=== PATIENT | female | born 1995 | race African-American/Black ===

== ENCOUNTER → 2016-07-20 | Outpatient (CLI) | payer OTHER ==
[2015-03-27 05:16] VITALS: BP 126/91
--- NOTE | 2016-07-20 15:29 | KCIC ---
PROCEDURE Obstetrical ultrasound HISTORY Uterine size and date discrepancy. FINDINGS Single intrauterine fetus is identified. The placenta is located fundal and right lateral. Amniotic fluid volume appears within normal limits. movement is documented. Cardiac activity is documented with a heart rate of 143 beats per minute. Four-chamber heart, three-vessel cord, kidneys, stomach, urinary bladder, brain and spine are documented. presentation is variable. Cervical length measures 5.0 centimeters. Biparietal diameter, head circumference, abdominal circumference, femur length are measured and ratios determined. Estimated sonographic age based on ultrasound is 22 weeks 1 day with an estimated due date of 11/22/2016. Estimated weight is 482 grams +/-71 grams. IMPRESSION Single viable intrauterine . Estimated sonographic age is 22 weeks 1 day. Electronically signed by: Cm Diaz MD (Jul 20, 2016 15:27:49)
== END | disposition home or self-care (01) ==
LOC: KCIC US 08:03
PROVIDERS: ATTEND Obstetrics & Gynecology
DX: O09.01 Supervision of pregnancy with history of infertility, first trimester (principal); O31.20X3 Continuing pregnancy after intrauterine death of one fetus or more, unspecified trimester, fetus 3; Z3A.22 22 weeks gestation of pregnancy
CPT/HCPCS: 76805

== ENCOUNTER 2016-11-14 21:51 | Inpatient (IN) | payer OTHER ==
[~2016-11-14] VITALS: Ht 160 cm; Wt 73.0 kg
[2016-11-14 22:21] LABS: BILIRUBIN,URINE NEGATIVE (NEG); GLUCOSE,URINE NEGATIVE (NEG); NITRITE,URINE NEGATIVE (NEG); PROTEIN,URINE NEGATIVE (NEG-TRACE)
[2016-11-14 22:29] LABS: BACTERIA,URINE FEW /HPF (0-FEW); RBC,URINE 0 /HPF (0-2); SQUAMOUS EPITHELIAL CELL,UR MANY /LPF
[2016-11-14] MEDS: IV RINGERS,LACTATED 1000ML 1,000 ML IV SCH (22:50)
[2016-11-15] MEDS: IV RINGERS,LACTATED 1000ML 1,000 ML IV SCH ×3 (00:18→10:23)
[2016-11-15 00:41] VITALS: BP 128/77
--- NOTE | 2016-11-15 00:45 | RAD ---
PROCEDURE Limited obstetric ultrasound. HISTORY Spontaneous decelerations. TECHNIQUE Real-time ultrasound imaging of the gravid uterus using transabdominal window is performed. COMPARISON None. FINDINGS A single intrauterine fetus is seen in breech position. heart rate is 143 beats per minute. BPD is 8.7 cm which equals 35 weeks 0 days. HC is 31.9 cm which equals 36 weeks 0 days. AC is 28.8 cm which equals 32 weeks 6 days. FL is 6.8 cm which equals 35 weeks 1 days. Average gestational age by ultrasound is 34 weeks 5 days with an EDC of December 21, 2016. There is some discrepancy in comparison to the clinical age of 38 weeks and 1 day. Estimated weight is 2334 +/- 345 grams. Estimated weight percentage is not listed. [A anatomic survey is not performed due to advanced gestational age. ] NANCY using the four quadrant method is 3.9 cm. Cervix is not seen. A fundal placenta is seen. No placenta previa and no placenta abruptio is identified. The maternal ovaries are not visualized. IMPRESSION 1. Single live intrauterine , estimated sonographic gestational age 34 weeks and 5 days. 2. Oligohydramnios. Electronically signed by: Blake Negron MD (November 15, 2016 00:43:47)
[2016-11-15 01:05] LABS: BASO # 0.1 x10^3/uL (0.0-0.2); BASO % 1 % (0-3); EOS % 1 % (0-3); HEMATOCRIT 27.1 % (36.0-47.0); HEMOGLOBIN 8.5 g/dL (12.0-15.5); LYMPH # 1.7 x10^3/uL (1.0-4.8); LYMPH % 15 % (24-48); MEAN CORPUSCULAR HEMOGLOBIN 23 pg (25-35); MEAN CORPUSCULAR HGB CONC 31 g/dL (31-37); MEAN CORPUSCULAR VOLUME 72 fL (79-100); MONO % 9 % (0-9); NEUT % 74 % (31-73); PLATELET COUNT 265 x10^3/uL (140-400); RED BLOOD COUNT 3.78 x10^6/uL (3.50-5.40); RED CELL DISTRIBUTION WIDTH 17.8 % (11.5-14.5); WHITE BLOOD COUNT 11.6 x10^3/uL (4.0-11.0)
[2016-11-15 04:58] LABS: ANISOCYTOSIS SLIGHT; HYPOCHROMIA MOD; MICROCYTOSIS SLIGHT; PLT ESTIMATE ADEQUATE (ADEQUATE); POLYCHROMASIA SLIGHT; TEAR DROP CELLS FEW
[2016-11-15 04:59] LABS: HELMET CELLS OCC
--- NOTE | 2016-11-15 09:52 | PDOC1 ---
OB - History Hx of Present Care: Good Care Ultrasounds: Normal mid trimester US Obstetrical Complications: None, Other (oligohyramnios) Medical Complications: None Past Family/Social History * Past Medical, Surgical, Family and Obstetric Histories reviewed from chart. Rubella: Immune RPR/VDRL: Negative GBS Status: Negative HBsAG: Negative OB - Chief Complaint & HPI Date of Admission: Date of Admission: November 14, 2016 at 21:51 Chief Complaint/History : 3 Para: 1 EGA: 38 Reason for admission: other (Breech and Oligohydramnios) Indication for : other (Breech and Oligohydramnios) Admission Nurse Assessment Rev: Yes Problems: OB - Admission Exam Physical Exam Vitals: VS - Last 72 Hours, by Label Date Time Temp Pulse Resp B/P (MAP) Pulse Ox O2 Delivery O2 Flow Rate FiO2 11/15/16 00:41 97.0 98 18 128/77 (94) Room Air 97.0 HEENT: Normal Heart: Regular Rate Lungs: Clear Abdomen: Gravid, Non tender, Soft Extremities: Edema Reflexes: Normal Cervical Dilatation: 1cm Effacement: 25% Station: Ballotable Membranes: Intact Heart Rate: Bradycardia Accelerations: Accelerations Present Decelerations: Variable decelerations Contractions on Admission: >10 Minutes Apart Intensity: Mild Text A: 38 wks IUP Breech Oligohydramnios P: Admit for c/s. AURA MARTINEZ Jr, MD November 15, 2016 09:52
[2016-11-15] MEDS ORDERED: ATROPINE 0.5 MG/5 ML DISP.SYRIN. IV PRN (10:30)
[2016-11-15] MEDS ORDERED: ONDANSETRON PF 4 MG/2 ML VIAL. IV PRN ×2 (10:30→13:45)
[2016-11-15] MEDS ORDERED: MORPHINE SULFATE 2 MG/ML DISP.SYRIN. IV PRN (10:30)
[2016-11-15] MEDS ORDERED: NALOXONE 0.4 MG/ML VIAL. IV PRN (10:30)
[2016-11-15] MEDS ORDERED: diphenhydrAMINE 50 MG/ML VIAL IV PRN (10:30)
[2016-11-15] MEDS ORDERED: PROCHLORPERAZINE 10 MG/2 ML VIAL. IV PRN (10:30)
[2016-11-15] MEDS ORDERED: NALBUPHINE 10 MG/ML AMPUL. IV PRN (10:30)
[2016-11-15] MEDS ORDERED: CITRIC ACID/SODIUM CITRATE 30 ML SOLUTION. PO ONE (10:45)
[2016-11-15] MEDS ORDERED: PHENYLEPHRINE in 0.9% NACL PF 1 MG/10 ML DISP.SYRIN. IV ONE (11:50)
[2016-11-15] MEDS ORDERED: FAMOTIDINE 20 MG/2 ML VIAL ONE (11:50)
[2016-11-15] MEDS ORDERED: fentaNYL PF VIAL 100 MCG/2 ML VIAL ONE (11:50)
[2016-11-15] MEDS ORDERED: DEXAMETHASONE SOD PHOS 20 MG/5 ML VIAL. ONE (11:50)
[2016-11-15] MEDS ORDERED: OXYTOCIN 10 UNIT/ML VIAL. ONE (11:50)
[2016-11-15] MEDS ORDERED: ONDANSETRON PF 4 MG/2 ML VIAL. ONE (11:50)
[2016-11-15] MEDS ORDERED: METOCLOPRAMIDE HCL 10 MG/2 ML VIAL. ONE (11:50)
[2016-11-15] MEDS ORDERED: MORPHINE PF 5 MG/10 ML VIAL. ONE (11:50)
[2016-11-15] MEDS ORDERED: ePHEDrine PF IN SALINE 50 MG/5 ML DISP.SYRIN IV ONE (11:51)
--- NOTE | 2016-11-15 13:33 | PDOC4 ---
OB Operative Note PRE OP DIAGNOSIS: Breech (Oligohyramnios) POST OP DIAGNOSIS: Other (Same) OPERATION PERFORMED: [address] Saurabh Benítez Anesthesia: Regional (Spinal) Blood Loss 500 ml Specimen placenta and infant OB Findings: Position (Breech), Sex (Female), (6/9), Weight (4 Lb 11 oz) Complications none Additional Remarks pt. AURA Del Cid Jr, MD November 15, 2016 13:33
[2016-11-15] MEDS ORDERED: SIMETHICONE 80 MG TAB.CHEW PO PRN (13:45)
[2016-11-15] MEDS ORDERED: IBUPROFEN 800 MG TABLET. PO PRN (13:45)
[2016-11-15] MEDS ORDERED: MAG HYDROX/ALUMINUM HYD/SIMETH 30 ML ORAL.SUSP PO PRN (13:45)
[2016-11-15] MEDS ORDERED: ZOLPIDEM 5 MG TABLET. PO PRN (13:45)
[2016-11-15] MEDS ORDERED: diphenhydrAMINE ORAL ELIXIR 12.5 MG/5 ML ML PO PRN (13:45)
[2016-11-15] MEDS ORDERED: 0.9 % SODIUM CHLORIDE 10 ML DISP.SYRIN. IV PRN (13:45)
[2016-11-15] MEDS ORDERED: OXYTOCIN 30 UNIT/500 ML PREMIX 500 ML IV PRN (13:45)
[2016-11-15 16:47] VITALS: BP 121/72
--- NOTE | 2016-11-15 18:16 | OP ---
DATE OF SURGERY: PREOPERATIVE DIAGNOSES: 1. A 38 weeks intrauterine . 2. Breech. 3. Bilateral hydramnios. POSTOPERATIVE DIAGNOSES: 1. A 38 weeks intrauterine . 2. Breech. 3. Bilateral hydramnios. PROCEDURE: Primary low transverse section. SURGEON: Aura Wiley MD DEFECT CUTTER: Jackelin. ANESTHESIA: Spinal. ESTIMATED BLOOD LOSS: 500 mL. COMPLICATIONS: None. FINDINGS: Viable female infant, Apgars 6 and 9, weight 4 pounds 11 ounces, 3-vessel cord placenta delivered manually intact. SUMMARY: A 21-year-old 2, para 1 who presented for her irregular contractions. The patient was observed and found to have recurrent variable deceleration. Sonogram confirmed hydramnios as well as breech presentation. The patient was counseled on need for section. She was counseled on risks, benefits and expectations and voiced a clear understanding to proceed. DESCRIPTION OF PROCEDURE: The patient was taken to surgery suite and placed in dorsal supine position. She was prepped with ChloraPrep and draped in sterile fashion. After adequate anesthesia, a Pfannenstiel skin incision was made with scalpel down to and through the fascia. Fascia was extended laterally using curved Mederos scissors. The superior edge of the fascia was grasped with two Christina clamps and dissected free of the abdominal rectus muscle superiorly using blunt dissection along with Bovie cautery. The same process took place inferiorly. The abdominal rectus muscles were then dissected using curved Mederos scissors in the midline. The peritoneum was grasped with 2 hemostats and entered sharply with Metzenbaum scissors. This incision was extended superiorly as well as inferiorly. The Charlie ring retractor was placed. Low transverse hysterotomy incision made with scalpel down to the amniotic sac. Hysterotomy incision was taken down to the amniotic sac. Hysterotomy incision was extended laterally and superiorly digitally. Amniotomy was performed with Allis clamp, which elicited a small amount of clear fluid. With the aid of fundal pressure, the 's hips were delivered. Both legs were flexed and delivered along with fundal pressure. The infant was ____ down to the subscapular region. The left arm was flexed and delivered. The was rotated 180 degrees. The right arm was flexed and delivered. With the aid of fundal pressure, ____ maneuver, the infant's head was delivered atraumatically. The was suctioned with bulb syringe orally and nasally. The umbilical cord was clamped twice and cut. A viable female infant was handed to awaiting nursing staff. Umbilical cord blood was obtained with arterial venous pH. Three vessel cord placenta was delivered manually intact. The uterus was then exteriorized, cleared of clot and debris with moist laps. The hysterotomy incision was reapproximated using 1-0 Vicryl suture in a running locked fashion and imbricated layer was performed using 1-0 Vicryl suture in running fashion. Uterus palpated firm. Fallopian tubes and ovaries appeared normal bilaterally. Posterior cul-de-sac was cleared of clot and debris with moist lap. The uterus then returned to abdomen. The pericolic gutters were cleared of clot and debris with moist lap. Interceed was placed over the hysterotomy incision in an inverted T fashion. The Charlie ring retractor was removed. The peritoneum was reapproximated using 1-0 Vicryl suture in running fashion. Fascia was reapproximated using 0 Vicryl suture in a running fashion. Skin was reapproximated using 4-0 Vicryl suture in subcuticular manner. The patient tolerated the procedure well and was taken to recovery room in stable condition. Sponge and needle counts correct x 3. AURA WILEY MD DR: ROSALIA/frank JOB#: [id number] / [id number]
[2016-11-15] MEDS: KETOROLAC TROMETHAMINE 30 MG/ML INJ. IV PRN (18:53)
[2016-11-15 21:40] VITALS: BP 121/80
[2016-11-16 00:15] VITALS: BP 123/81
[2016-11-16] MEDS: IV RINGERS,LACTATED 1000ML 1,000 ML IV SCH (01:12)
[2016-11-16] MEDS: KETOROLAC TROMETHAMINE 30 MG/ML INJ. IV PRN (01:12)
[2016-11-16 04:33] LABS: BASO % 0 % (0-3); EOS % 0 % (0-3); HEMATOCRIT 22.1 % (36.0-47.0); HEMOGLOBIN 7.2 g/dL (12.0-15.5); LYMPH # 1.2 x10^3/uL (1.0-4.8); LYMPH % 7 % (24-48); MEAN CORPUSCULAR HEMOGLOBIN 23 pg (25-35); MEAN CORPUSCULAR HGB CONC 33 g/dL (31-37); MEAN CORPUSCULAR VOLUME 71 fL (79-100); MONO % 10 % (0-9); NEUT % 83 % (31-73); PLATELET COUNT 237 x10^3/uL (140-400); RED BLOOD COUNT 3.12 x10^6/uL (3.50-5.40); RED CELL DISTRIBUTION WIDTH 17.6 % (11.5-14.5); WHITE BLOOD COUNT 16.5 x10^3/uL (4.0-11.0)
[2016-11-16 06:22] LABS: RPR REFLEX Non Reactive (Non Reactive)
[2016-11-16 07:03] VITALS: BP 114/77
[2016-11-16] MEDS: FERROUS SULFATE 325 MG TABLET. PO SCH ×2 (07:33→18:35)
[2016-11-16] MEDS: DOCUSATE SODIUM 100 MG CAPSULE. PO PRN (07:33)
--- NOTE | 2016-11-16 09:00 | PDOC ---
OB Progress Note Date of Service 11/16/16 Time of Evaluation 0855 Notes Pt. feeling well. Pain controlled. Breast and bottle feeding. Lochia minimal. Lab Laboratory Tests Test 11/14/16 22:10 11/15/16 00:50 11/16/16 03:40 Urine Collection Type Unknown Urine Color Yellow Urine Clarity Clear Urine pH 6.0 Urine Specific [place] >=1.030 Urine Protein Negative mg/dL (NEG-TRACE) Urine Glucose (UA) Negative mg/dL (NEG) Urine Ketones (Stick) Negative mg/dL (NEG) Urine Blood Negative (NEG) Urine Nitrite Negative (NEG) Urine Bilirubin Negative (NEG) Urine Urobilinogen Dipstick 1.0 mg/dL (0.2 mg/dL) Urine Leukocyte Esterase Trace (NEG) Urine RBC 0 /HPF (0-2) Urine WBC 1-4 /HPF (0-4) Urine Squamous Epithelial Cells Many /LPF Urine Bacteria Few /HPF (0-FEW) Urine Mucus Marked /LPF White Blood Count 11.6 x10^3/uL (4.0-11.0) 16.5 x10^3/uL (4.0-11.0) Red Blood Count 3.78 x10^6/uL (3.50-5.40) 3.12 x10^6/uL (3.50-5.40) Hemoglobin 8.5 g/dL (12.0-15.5) 7.2 g/dL (12.0-15.5) Hematocrit 27.1 % (36.0-47.0) 22.1 % (36.0-47.0) Mean Corpuscular Volume 72 fL (79-100) 71 fL (79-100) Mean Corpuscular Hemoglobin 23 pg (25-35) 23 pg (25-35) Mean Corpuscular Hemoglobin Concent 31 g/dL (31-37) 33 g/dL (31-37) Red Cell Distribution Width 17.8 % (11.5-14.5) 17.6 % (11.5-14.5) Platelet Count 265 x10^3/uL (140-400) 237 x10^3/uL (140-400) Neutrophils (%) (Auto) 74 % (31-73) 83 % (31-73) Lymphocytes (%) (Auto) 15 % (24-48) 7 % (24-48) Monocytes (%) (Auto) 9 % (0-9) 10 % (0-9) Eosinophils (%) (Auto) 1 % (0-3) 0 % (0-3) Basophils (%) (Auto) 1 % (0-3) 0 % (0-3) Neutrophils # (Auto) 8.5 x10^3uL (1.8-7.7) 13.6 x10^3uL (1.8-7.7) Lymphocytes # (Auto) 1.7 x10^3/uL (1.0-4.8) 1.2 x10^3/uL (1.0-4.8) Monocytes # (Auto) 1.0 x10^3/uL (0.0-1.1) 1.7 x10^3/uL (0.0-1.1) Eosinophils # (Auto) 0.2 x10^3/uL (0.0-0.7) 0.0 x10^3/uL (0.0-0.7) Basophils # (Auto) 0.1 x10^3/uL (0.0-0.2) 0.0 x10^3/uL (0.0-0.2) Platelet Estimate Adequate (ADEQUATE) Giant Platelets Occ Polychromasia Slight Hypochromasia Mod Anisocytosis Slight Microcytosis Slight Tear Drop Cells Few Helmet Cells Occ RPR Titer Additional Testing Non reactive (Non Reactive) Laboratory Tests Test 11/16/16 03:40 White Blood Count 16.5 x10^3/uL (4.0-11.0) Red Blood Count 3.12 x10^6/uL (3.50-5.40) Hemoglobin 7.2 g/dL (12.0-15.5) Hematocrit 22.1 % (36.0-47.0) Mean Corpuscular Volume 71 fL (79-100) Mean Corpuscular Hemoglobin 23 pg (25-35) Mean Corpuscular Hemoglobin Concent 33 g/dL (31-37) Red Cell Distribution Width 17.6 % (11.5-14.5) Platelet Count 237 x10^3/uL (140-400) Neutrophils (%) (Auto) 83 % (31-73) Lymphocytes (%) (Auto) 7 % (24-48) Monocytes (%) (Auto) 10 % (0-9) Eosinophils (%) (Auto) 0 % (0-3) Basophils (%) (Auto) 0 % (0-3) Neutrophils # (Auto) 13.6 x10^3uL (1.8-7.7) Lymphocytes # (Auto) 1.2 x10^3/uL (1.0-4.8) Monocytes # (Auto) 1.7 x10^3/uL (0.0-1.1) Eosinophils # (Auto) 0.0 x10^3/uL (0.0-0.7) Basophils # (Auto) 0.0 x10^3/uL (0.0-0.2) Medications Current Medications Ringer's Solution 1,000 ml @ 125 mls/hr Q8H IV Last administered on 11/16/16t 01:12; Start 11/14/16 at 22:00 Morphine Sulfate 2 mg PRN Q10MIN PRN IV PAIN; Start 11/15/16 at 10:30; Stop 11/16 at 10:29 Ondansetron HCl (Zofran) 4 mg PRN Q6HRS PRN IV NAUSEA/VOMITING; Start 11/15/16 at 10:30; Stop 11/16/16 at 10:29 Prochlorperazine Edisylate (Compazine) 5 mg PRN Q6HRS PRN IV NAUSEA/VOMITING; Start 11/15/16 at 10:30; Stop 11/16/16 at 10:29 Diphenhydramine HCl (Benadryl) 12.5 mg PRN Q2HR PRN IV ITCHING; Start 11/15/16 at 10:30; Stop 11/16/16 at 10:29 Nalbuphine HCl (Nubain) 2.5 mg PRN Q2HR PRN IV PAIN; Start 11/15/16 at 10:30; Stop 11/16/16 at 10:29 Atropine Sulfate 0.5 mg PRN 1X PRN IV SEE COMMENTS; Start 11/15/16 at 10:30; Stop 11/16/16 at 10:29 Naloxone HCl (Narcan) 0.04 mg PRN Q2MIN PRN IV SEE COMMENTS; Start 11/15/16 at 10:30; Stop 11/16/16 at 10:29 Cefazolin Sodium 1 gm/Sodium Chloride 50 ml @ 100 mls/hr 1X ONCE IV ; Start at 06:00; Stop 11/16/16 at 06:29; Status UNV Citric Acid/ Sodium Citrate (Bicitra) 30 ml 1X ONCE PO Last administered on t 12:07; Start 11/15/16 at 10:45; Stop 11/15/16 at 10:46; Status DC Cefazolin Sodium 50 ml @ 100 mls/hr 1X ONCE IV ; Start 11/15/16 at 10:45; Stop 11/15/16 at 11:14; Status DC Dexamethasone Sodium Phosphate (Decadron) 20 mg STK-MED ONCE .ROUTE ; Start 11/15 at 11:50; Stop 11/15/16 at 11:51; Status DC Famotidine (Pepcid) 20 mg STK-MED ONCE .ROUTE ; Start 11/15/16 at 11:50; Stop 11/15/16 at 11:51; Status DC Metoclopramide HCl (Reglan) 10 mg STK-MED ONCE .ROUTE ; Start 11/15/16 at 11:50; Stop 11/15/16 at 11:51; Status DC Ondansetron HCl (Zofran) 4 mg STK-MED ONCE .ROUTE ; Start 11/15/16 at 11:50; Stop 11/15/16 at 11:51; Status DC Phenylephrine HCl 1 mg STK-MED ONCE IV ; Start 11/15/16 at 11:50; Stop 11/15/16 at 11:51; Status DC Fentanyl Citrate (Fentanyl 2ml Vial) 100 mcg STK-MED ONCE .ROUTE ; Start at 11:50; Stop 11/15/16 at 11:51; Status DC Oxytocin (Pitocin) 10 unit STK-MED ONCE .ROUTE ; Start 11/15/16 at 11:50; Stop at 11:51; Status DC Morphine Sulfate (Morphine Preservative Free) 5 mg STK-MED ONCE .ROUTE ; Start 11/15/16 at 11:50; Stop 11/15/16 at 11:51; Status DC Ephedrine Sulfate 50 mg STK-MED ONCE IV ; Start 11/15/16 at 11:51; Stop 11/15/16 at 11:52; Status DC Cefazolin Sodium/ Dextrose 50 ml @ 100 mls/hr 1X ONCE IV ; Start 11/15/16 at 12 :15; Stop 11/15/16 at 12:44; Status DC Sodium Chloride (Normal Saline Flush) 3 ml QSHIFT PRN IV AFTER MEDS AND BLOOD DRAWS; Start 11/15/16 at 13:45 Oxytocin/Sodium Chloride 500 ml @ 125 mls/hr CONT PRN IV EXCESSIVE POST- BLEEDING; Start 11/15/16 at 13:45; Stop 11/15/16 at 21:44; Status DC Ibuprofen (Motrin) 800 mg PRN Q8HRS PRN PO INFLAMMATION; Start 11/15/16 at 13:45 Ondansetron HCl (Zofran) 4 mg PRN Q6HRS PRN IV NAUSEA/VOMITING; Start 11/15/16 at 13:45 Docusate Sodium (Colace) 100 mg PRN BID PRN PO CONSTIPATION Last administered on 11/16/16 07:33; Start 11/15/16 at 13:45 Al Hydroxide/Mg Hydroxide (Mylanta Plus Xs) 30 ml PRN Q4HRS PRN PO HEARTBURN / GAS; Start 11/15/16 at 13:45 Simethicone (Gas-X) 80 mg PRN AFTMEALHC PRN PO GAS / BLOATING; Start 11/15/16 at 13:45 Diphenhydramine HCl (Benadryl Oral Elixir) 12.5 mg PRN Q6HRS PRN PO ITCHING; Start 11/15/16 at 13:45 Ferrous Sulfate (Feosol) 325 mg BIDWMEALS PO Last administered on 11/16/16 07: 33; Start 11/15/16 at 17:00 Zolpidem Tartrate (Ambien) 5 mg PRN QHS PRN PO INSOMNIA, MAY REPEAT X1; Start 11/15/16 at 13:45 Oxycodone/ Acetaminophen (Percocet 5/325) 2 tab PRN Q4HRS PRN PO MODERATE PAIN , SEVERE PAIN; Start 11/15/16 at 13:45 Ketorolac Tromethamine (Toradol) 30 mg PRN Q6HRS PRN IV PAIN Last administered on 11/16/16 01:12; Start 11/15/16 at 13:45; Stop 11/20/16 at 13:44 Exam Abd: soft, mild tenderness, fundus firm Bandage removed. INcision site: clean, dry and intact Assessment POD#1 s/p c/s Plan of Care: Continue current Tx, Mgmt AURA MARTINEZ Jr, MD November 16, 2016 09:00
[2016-11-16] MEDS: oxyCODONE/APAP 5/325 1 TAB TABLET PO PRN ×3 (09:20→22:18)
[2016-11-16 09:55] VITALS: BP 119/75
[2016-11-16 18:25] VITALS: BP 116/88
[2016-11-16 22:00] VITALS: BP 124/81
[2016-11-16] MEDS: IBUPROFEN 100 MG/5 ML ORAL.SUSP. PO PRN (23:34)
[2016-11-17 06:11] VITALS: BP 133/91
[2016-11-17] MEDS: oxyCODONE/APAP 5/325 1 TAB TABLET PO PRN ×3 (08:32→21:35)
[2016-11-17] MEDS: DOCUSATE SODIUM 100 MG CAPSULE. PO PRN (08:32)
[2016-11-17] MEDS: FERROUS SULFATE 325 MG TABLET. PO SCH ×2 (08:32→18:12)
[2016-11-17 12:19] VITALS: BP 129/94
[2016-11-17] MEDS: IBUPROFEN 100 MG/5 ML ORAL.SUSP. PO PRN (14:20)
[2016-11-17 15:05] VITALS: BP 115/81
[2016-11-17] MEDS ORDERED: DIPHTH,PERTUSS(ACELL),TET TOX 0.5 ML DISP.SYRIN. VAX IM ONE (16:00)
[2016-11-17 19:50] VITALS: BP 114/76
[2016-11-18] MEDS: oxyCODONE/APAP 5/325 1 TAB TABLET PO PRN (05:55)
[2016-11-18 05:56] VITALS: BP 131/90
--- NOTE | 2016-11-18 10:57 | PATHOLOGY ---
PATHOLOGY REPORT * * * * * * * * FINAL DIAGNOSIS: Placenta, section: - Third trimester placenta, 257 grams (small for gestational age). - Attached trivascular umbilical cord without significant inflammation. - Acute deciduitis. - Placental parenchyma with no significant histopathologic diagnosis. (KEVINM:adama; d/t: 11/18/2016) REPORT ELECTRONICALLY SIGNED BY: Cassandra Ruvalcaba M.D. DATE/TIME: 11/18/2016 10:56 * * * * * * * * GROSS PATHOLOGY: The specimen is received in formalin labeled "Brownplacenta" is a 12.5 x 10.2 by up to 3.4 cm dunn placenta with a 19 cm long umbilical cord. The 3 vessel umbilical cord inserts paracentrally with 3 twists per 5-6 cm. The membranes are bluish gaviria with marginal insertion. The point of rupture cannot be determined. The surface is intact. The maternal surface is also intact. After removal of the membranes and umbilical cord, the placenta weighs 257 g. Sectioning reveals a red beefy unremarkable cut surface. Section code: A1-membranes and umbilical cord, [id number] section adjacent to umbilical cord insertion site, A3 through [id number] advertising account representative sections of placenta full thickness. (AKA; 11/17/2016) INITIAL CPT CODE(S): A; 95846 Professional services performed by [employer] [place] [address] Technical services performed by [email or web address] at [address] [place] [address] [address] [address]. SPECIMEN(S) RECEIVED: A.Placenta CLINICAL HISTORY: for breech presentation, 38.2 weeks gestation, oligohydramnios, IUGR, , EDC 11/22, 4lb 12oz female @ 1238 on 11/15/16, apgars 7-9 PATIENT: IRVING FELDER /AGE: 701/24/1995 (Age: 21) PATIENT #: [id number] ALT CASE #: SPECIMEN COLLECTION DATE: 11/15/2016 SPECIMEN RECEIVED DATE: 11/16/2016 [facility] - [address] [place] [address] - PHONE: [phone] * * * END OF REPORT * * *
[2016-11-18 11:00] VITALS: BP 124/89
[2016-11-18] MEDS: FERROUS SULFATE 325 MG TABLET. PO SCH (13:33)
[2016-11-18] MEDS: IBUPROFEN 100 MG/5 ML ORAL.SUSP. PO PRN (13:33)
--- NOTE | 2016-11-18 16:36 | PDOC ---
OB Progress Note Date of Service 11/18/16 Time of Evaluation 1630 Notes Pt. feeling well. No complaints. Medications Current Medications Ringer's Solution 1,000 ml @ 125 mls/hr Q8H IV Last administered on 11/16/16t 01:12; Start 11/14/16 at 22:00; Stop 11/16/16 at 21:08; Status DC Morphine Sulfate 2 mg PRN Q10MIN PRN IV PAIN; Start 11/15/16 at 10:30; Stop 11/16 at 10:29; Status DC Ondansetron HCl (Zofran) 4 mg PRN Q6HRS PRN IV NAUSEA/VOMITING; Start 11/15/16 at 10:30; Stop 11/16/16 at 10:29; Status DC Prochlorperazine Edisylate (Compazine) 5 mg PRN Q6HRS PRN IV NAUSEA/VOMITING; Start 11/15/16 at 10:30; Stop 11/16/16 at 10:29; Status DC Diphenhydramine HCl (Benadryl) 12.5 mg PRN Q2HR PRN IV ITCHING; Start 11/15/16 at 10:30; Stop 11/16/16 at 10:29; Status DC Nalbuphine HCl (Nubain) 2.5 mg PRN Q2HR PRN IV PAIN; Start 11/15/16 at 10:30; Stop 11/16/16 at 10:29; Status DC Atropine Sulfate 0.5 mg PRN 1X PRN IV SEE COMMENTS; Start 11/15/16 at 10:30; Stop 11/16/16 at 10:29; Status DC Naloxone HCl (Narcan) 0.04 mg PRN Q2MIN PRN IV SEE COMMENTS; Start 11/15/16 at 10:30; Stop 11/16/16 at 10:29; Status DC Cefazolin Sodium 1 gm/Sodium Chloride 50 ml @ 100 mls/hr 1X ONCE IV ; Start at 06:00; Stop 11/16/16 at 06:29; Status UNV Citric Acid/ Sodium Citrate (Bicitra) 30 ml 1X ONCE PO Last administered on t 12:07; Start 11/15/16 at 10:45; Stop 11/15/16 at 10:46; Status DC Cefazolin Sodium 50 ml @ 100 mls/hr 1X ONCE IV ; Start 11/15/16 at 10:45; Stop 11/15/16 at 11:14; Status DC Dexamethasone Sodium Phosphate (Decadron) 20 mg STK-MED ONCE .ROUTE ; Start 11/15 at 11:50; Stop 11/15/16 at 11:51; Status DC Famotidine (Pepcid) 20 mg STK-MED ONCE .ROUTE ; Start 11/15/16 at 11:50; Stop 11/15/16 at 11:51; Status DC Metoclopramide HCl (Reglan) 10 mg STK-MED ONCE .ROUTE ; Start 11/15/16 at 11:50; Stop 11/15/16 at 11:51; Status DC Ondansetron HCl (Zofran) 4 mg STK-MED ONCE .ROUTE ; Start 11/15/16 at 11:50; Stop 11/15/16 at 11:51; Status DC Phenylephrine HCl 1 mg STK-MED ONCE IV ; Start 11/15/16 at 11:50; Stop 11/15/16 at 11:51; Status DC Fentanyl Citrate (Fentanyl 2ml Vial) 100 mcg STK-MED ONCE .ROUTE ; Start at 11:50; Stop 11/15/16 at 11:51; Status DC Oxytocin (Pitocin) 10 unit STK-MED ONCE .ROUTE ; Start 11/15/16 at 11:50; Stop at 11:51; Status DC Morphine Sulfate (Morphine Preservative Free) 5 mg STK-MED ONCE .ROUTE ; Start 11/15/16 at 11:50; Stop 11/15/16 at 11:51; Status DC Ephedrine Sulfate 50 mg STK-MED ONCE IV ; Start 11/15/16 at 11:51; Stop 11/15/16 at 11:52; Status DC Cefazolin Sodium/ Dextrose 50 ml @ 100 mls/hr 1X ONCE IV ; Start 11/15/16 at 12 :15; Stop 11/15/16 at 12:44; Status DC Sodium Chloride (Normal Saline Flush) 3 ml QSHIFT PRN IV AFTER MEDS AND BLOOD DRAWS; Start 11/15/16 at 13:45 Oxytocin/Sodium Chloride 500 ml @ 125 mls/hr CONT PRN IV EXCESSIVE POST- BLEEDING; Start 11/15/16 at 13:45; Stop 11/15/16 at 21:44; Status DC Ibuprofen (Motrin) 800 mg PRN Q8HRS PRN PO INFLAMMATION; Start 11/15/16 at 13:45 Ondansetron HCl (Zofran) 4 mg PRN Q6HRS PRN IV NAUSEA/VOMITING; Start 11/15/16 at 13:45 Docusate Sodium (Colace) 100 mg PRN BID PRN PO CONSTIPATION Last administered on 11/17/16 08:32; Start 11/15/16 at 13:45 Al Hydroxide/Mg Hydroxide (Mylanta Plus Xs) 30 ml PRN Q4HRS PRN PO HEARTBURN / GAS; Start 11/15/16 at 13:45 Simethicone (Gas-X) 80 mg PRN AFTMEALHC PRN PO GAS / BLOATING; Start 11/15/16 at 13:45 Diphenhydramine HCl (Benadryl Oral Elixir) 12.5 mg PRN Q6HRS PRN PO ITCHING; Start 11/15/16 at 13:45 Ferrous Sulfate (Feosol) 325 mg BIDWMEALS PO Last administered on 11/18/16 13: 33; Start 11/15/16 at 17:00 Zolpidem Tartrate (Ambien) 5 mg PRN QHS PRN PO INSOMNIA, MAY REPEAT X1 Last administered on 11/16/16 22:17; Start 11/15/16 at 13:45 Oxycodone/ Acetaminophen (Percocet 5/325) 2 tab PRN Q4HRS PRN PO MODERATE PAIN , SEVERE PAIN Last administered on 11/18/16 05:55; Start 11/15/16 at 13:45 Ketorolac Tromethamine (Toradol) 30 mg PRN Q6HRS PRN IV PAIN Last administered on 11/16/16 01:12; Start 11/15/16 at 13:45; Stop 11/20/16 at 13:44 Ibuprofen (Children'S Motrin) 800 mg PRN Q8HRS PRN PO INFLAMMATION Last administered on 11/18/16 13:33; Start 11/16/16 at 23:00 Diphtheria/ Tetanus/Acell Pertussis (Boostrix) 0.5 ml ONCE ONCE VAX IM Last administered on 11/18/16t 13:39; Start 11/17/16 at 16:00; Stop 11/17/16 at 16:01 ; Status DC Exam ABd: soft, non tender, fundus firm Incision site: clean, dry and intact Assessment POD#3 s/p c/s Plan of Care: See new orders (D/c home.) AURA MARTINEZ Jr, MD November 18, 2016 16:36
--- NOTE | 2016-11-18 16:37 | DISCH ---
DISCHARGE INSTRUCTIONS Condition on Discharge Condition on Discharge: Stable Activity After Discharge Activity Instructions for Disc: Activity as tolerated Lifting Instructions after Dis: No heavy lifting Driving Instructions after Dis: Do not drive today Diet after Discharge Diet after Discharge: Regular Contacting the DRKarl after DC Call your doctor for: Concerns you may have Follow-Up Follow up with: Dr. Christian in 2 week. AURA CHRISTIAN Jr, MD November 18, 2016 16:37
[2016-11-18] MEDS ORDERED: IBUP-1060 PO (16:39)
[2016-11-18] MEDS ORDERED: OXYC-323 PO (16:39)
[2016-11-18] MEDS ORDERED: DOCU-27 PO (16:39)
[2016-11-18 17:00] VITALS: BP 137/80
== END 2016-11-18 17:30 | disposition home or self-care (01) | DRG 765 ==
LOC: OBSVTOIN 21:51 → 3 SO LND 21:51 → 3 NORTH 11-15 16:24
PROVIDERS: ADMIT Obstetrics & Gynecology; ATTEND Obstetrics & Gynecology
PROC: 10D00Z1 Extraction of Products of Conception, Low, Open Approach (ICD-10-PCS; principal; 2016-11-15)
DX: O32.9XX0 Maternal care for malpresentation of fetus, unspecified, not applicable or unspecified (principal); O41.03X0 Oligohydramnios, third trimester, not applicable or unspecified; Z37.0 Single live birth; O76 Abnormality in fetal heart rate and rhythm complicating labor and delivery; Z3A.38 38 weeks gestation of pregnancy; O99.02 Anemia complicating childbirth; D50.0 Iron deficiency anemia secondary to blood loss (chronic)
CPT/HCPCS: 36415; 76815; 81001; 85007; 85027; 86593; 86850; 86900; 86901; 87086; 88307; 90715; G0378; J1100; J1885; J2270; J2370; J2405; J2590; J2765; J3010; J7120; S0028